=== PATIENT | female | born 1975 | race Caucasian/White ===

== ENCOUNTER → 2018-03-10 16:15 | Emergency (ER) | payer BC ==
[2018-03-10 16:36] VITALS: BP 136/89
== END | disposition left against medical advice (07) ==
LOC: ED 16:15
DX: J02.9 Acute pharyngitis, unspecified (principal); Z53.21 Procedure and treatment not carried out due to patient leaving prior to being seen by health care provider

== ENCOUNTER 2018-09-27 09:14 | Emergency (ER) | payer BC ==
[2018-09-27] MEDS ORDERED: Ondansetron ODT TAB* 4 MG SL ONE (10:14)
[2018-09-27 10:25] LABS: Influenza A Molecular POSITIVE (Negative)
--- NOTE | 2018-09-27 10:42 | ED ---
Influenza-Like Illness - HPI Summary HPI Summary: Patient is a 43-year-old otherwise healthy female presenting to the ED with feelings of fatigue, dizziness, nausea. She was seen at urgent care yesterday, stating she had a sinus infection and was placed on Augmentin. She states despite being on the Augmentin, she continues to have symptoms. She diagnosed herself with the flu last week she had body aches, fevers, sweats, chills and her child was also diagnosed with the flu. She states her influenza-like symptoms have improved, however she remains with weakness. She is concerned over a worsening infection. - History of Current Complaint Chief Complaint: EDFluSymptoms Time Seen by Provider: 09/27/18 09:27 Hx Obtained From: Patient Onset/Duration: Gradual Onset Severity: Moderate Associated Signs & Symptoms: F/C - 102 6+ days ago, Myalgia, Cough, Nasal Congestion, Headache Related Hx: Possible Flu/Infectious Exposure - child with flu + - Risk Factors Influenza Risk Factors: Negative - Allergy/Home Medications Allergies/Adverse Reactions: Allergies Allergy/AdvReac Type Severity Reaction Status Date / Time No Known Allergies Allergy Verified 09/27/18 09:23 Home Medications: Home Medications Amoxicillin/Clavulanate TAB* [Augmentin TAB 875*] 875 mg PO BID 09/27/18 [ History Confirmed 09/27/18] PMH/Surg Hx/FS Hx/Imm Hx Previously Healthy: Yes - Surgical History Surgery Procedure, Year, and Place: [place]. Oral Surgery - Immunization History Hx Pertussis Vaccination: No Immunizations Up to Date: Yes Infectious Disease History: No Infectious Disease History: Denies: Traveled Outside the [place] in Last 30 Days - Social History Occupation: Employed Full-time Lives: With Family Alcohol Use: None Hx Substance Use: No Substance Use Type: Reports: None Hx Tobacco Use: Yes Smoking Status (MU): Former Smoker Review of Systems Positive: Fatigue. Negative: Fever, Chills, Skin Diaphoresis Negative: Blurred Vision, Diplopia, Drainage, Erythema Positive: Nasal Discharge - nasal congestion Negative: Palpitations, Chest Pain Negative: Shortness Of Breath, Cough Positive: Nausea. Negative: Vomiting, Diarrhea Positive: Myalgia Positive: Weakness Psychological: Normal All Other Systems Reviewed And Are Negative: Yes Physical Exam Triage Information Reviewed: Yes Vital Signs On Initial Exam: Initial Vitals Temp Pulse Resp BP Pulse Ox 98.6 F 96 19 127/107 98 09/27/18 09:19 09/27/18 09:19 09/27/18 09:19 09/27/18 09:19 09/27/18 09:19 Vital Signs Reviewed: Yes Appearance: Positive: Well-Appearing, Well-Nourished Skin: Positive: Skin Color Reflects Adequate Perfusion Head/Face: Positive: Normal Head/Face Inspection Eyes: Positive: EOMI, Conjunctiva Clear ENT: Positive: Pharynx normal, Nasal congestion, Uvula midline. Negative: Tonsillar swelling, Tonsillar exudate, Sinus tenderness Neck: Positive: Supple, No Lymphadenopathy Respiratory/Lung Sounds: Positive: Clear to Auscultation, Breath Sounds Present Cardiovascular: Positive: RRR, Pulses are Symmetrical in both Upper and Lower Extremities Musculoskeletal: Positive: Normal, Strength/ROM Intact Neurological: Positive: Alert, Oriented to Person Place, Time, Speech Normal Psychiatric: Positive: Affect/Mood Appropriate AVPU Assessment: Alert Diagnostics - Vital Signs Vital Signs Temp Pulse Resp BP Pulse Ox 09/27/18 10:15 76 118/82 96 09/27/18 10:00 89 96 09/27/18 09:43 85 98 09/27/18 09:19 98.6 F 96 19 127/107 98 - Laboratory Lab Results: Lab Results 09/27/18 Range/Units 10:09 Influenza A (Rapid) Positive A (Negative) Result Diagrams: 09/27/18 10:34 09/27/18 10:34 Lab Statement: Any lab studies that have been ordered have been reviewed, and results considered in the medical decision making process. Flu Symptom Course/Dx - Course Course Of Treatment: During this patient's was treatment, she is evaluated for possible sinus infection and weakness. She has no tenderness to the maxillary or frontal sinuses. Lungs CTA, RRR. Patient appears otherwise well. Vital signs are stable. She is nondiaphoretic and nontoxic appearing. She states she feels as though she has concussion, however she did not hit her head. She states she is "foggy." She has no known allergies, was placed on Augmentin yesterday. She states despite being on the Augmentin, she continues to have diffuse frontal headache and sinus pressure and pain with congestion. Denies any cough or congestion to the chest at this time. Labs obtained. Influenza obtained. Positive for influenza A. Patient states she feels that this is different than her influenza diagnosis is concern for secondary infection. Labs are obtained and are WNL. I have given her Zofran in the ED with improvement. She will be diagnosed with influenza and is encouraged to continue her Augmentin and Zofran at home. - Diagnoses Differential Diagnosis/HQI/PQRI: Positive: Bronchitis, Influenza, Upper Respiratory Infection Provider Diagnoses: Influenza A Discharge - Sign-Out/Discharge Documenting (check all that apply): Patient Departure Patient Received Moderate/Deep Sedation with Procedure: No - Discharge Plan Condition: Stable Disposition: HOME Prescriptions: Ondansetron ODT TAB* [Zofran 4 MG Odt TAB*] 4 mg PO Q6H PRN #12 tab.odt MDD 4 PRN Reason: Nausea Patient Education Materials: Influenza (ED), Acute Nausea and Vomiting (ED) Referrals: Kalen Montes MD [Primary Care Provider] - Additional Instructions: Zofran as needed for nausea and vomiting Drink plenty of fluids including Gatorade Eat small meals at a time including chicken noodle soup, apple sauce, bananas, toast, rice Continue your Augmentin at home - Billing Disposition and Condition Condition: STABLE Disposition: Home
[2018-09-27 11:01] LABS: ABS Basophils 0 10^3/ul (0-0.2); ABS Eosinophils 0 10^3/ul (0-0.6); ABS Lymphocytes 0.9 10^3/ul (1.0-4.8); ABS Monocytes 0.4 10^3/ul (0-0.8); ABS Neutrophils 2.8 10^3/ul (1.5-7.7); ABS Nucleated RBC 0 10^3/ul; Eosinophil % 1.2 %; Hematocrit 43 % (33-41); Hemoglobin 14.2 g/dL (12.0-16.0); Lymphocyte % 20.8 %; Mean Corpuscular HGB Conc 33 g/dL (31-36); Mean Corpuscular Hemoglobin 29 pg (27-31); Mean Corpuscular Volume 88 fL (80-97); Mean Platelet Volume 8.3 fL (7.4-10.4); Nucleated Red Blood Cells % 0; Platelet Count 166 10^3/uL (150-450); Red Cell Distribution Width 13 % (10.5-15); White Blood Count 4.1 10^3/uL (3.5-10.8)
[2018-09-27 11:08] LABS: Albumin 4.3 g/dL (3.2-5.2); Calcium 9.7 mg/dL (8.6-10.3); Potassium 4.1 mmol/L (3.5-5.0); Total Bilirubin 0.5 mg/dL (0.2-1.0)
[2018-09-27 11:14] LABS: Albumin/Globulin Ratio 1.5 (1-3); BUN/Creatinine Ratio 10.3 (8-20); C Reactive Protein 1.48 mg/L (<8.01); EGFR African American 138.6 (>60); EGFR Non-African American 114.6 (>60); Globulin 2.8 g/dL (2-4); Total Protein 7.1 g/dL (6.4-8.9)
[2018-09-27 11:36] VITALS: BP 113/91
== END 2018-09-27 11:35 | disposition home or self-care (01) ==
LOC: ED 09:14
DX: J10.1 Influenza due to other identified influenza virus with other respiratory manifestations (principal); R53.83 Other fatigue; R05 Cough; R09.81 Nasal congestion; Z87.891 Personal history of nicotine dependence
CPT/HCPCS: 36415; 80053; 85025; 86140; 99282; A9270-GY